=== PATIENT | male | born 1965 | race Caucasian/White ===

== ENCOUNTER 2023-04-23 12:50 | Outpatient (CLI) | payer OTHER | END 2023-04-23 12:51 | disposition home or self-care (01) | LOC: CSHCT 12:50 | PROVIDERS: ATTEND Urology | DX: C61 Malignant neoplasm of prostate (principal) | CPT/HCPCS: 72197; 74178 ==

== ENCOUNTER 2024-04-12 13:02 | Outpatient (CLI) | payer OTHER ==
[2024-04-12] MEDS ORDERED: Magnevist 469MG/ML 20 ML VIAL ONE (13:59)
== END 2024-04-12 13:03 | disposition home or self-care (01) ==
LOC: CSHRAD 13:02
PROVIDERS: ATTEND Urology
DX: C61 Malignant neoplasm of prostate (principal); N40.2 Nodular prostate without lower urinary tract symptoms
CPT/HCPCS: 72197; A9579

== ENCOUNTER 2024-08-03 08:23 | Outpatient (CLI) | payer OTHER | END 2024-08-03 08:24 | disposition home or self-care (01) | LOC: CSHSLEEP 08:23 | PROVIDERS: ATTEND Student in an Organized Health Care Education/Training Program | DX: G47.9 Sleep disorder, unspecified (principal); R53.83 Other fatigue; G47.33 Obstructive sleep apnea (adult) (pediatric) | CPT/HCPCS: 95800 ==